=== PATIENT | male | born 1960 | race Caucasian/White ===

== ENCOUNTER → 2019-08-16 | Outpatient (CLI) | payer OTHER ==
[2019-08-16 13:13] LABS: HEMATOCRIT 46.9 % (42.0-52.0); HEMOGLOBIN 16.2 gm/dL (14.0-18.0); MCH 30.8 pg (26.0-34.0); MCHC 34.6 g/dL (28.0-37.0); MCV 89.1 fL (80.0-100.0); MPV 8.9 fl. (7.2-11.1); NUCLEATED RBCS 0 /100WBC; PLATELET COUNT* 220 thou/uL (150-400); RBC 5.26 mil/uL (4.50-6.00); RDW-CV 13.8 % (10.5-14.5); WBC 9.4 thou/uL (4.0-11.0)
[2019-08-16 13:33] LABS: ABSOLUTE LYMPHOCYTES 0.8 thou/uL (0.8-5.3); ABSOLUTE MONOCYTES 0.3 thou/uL (0.0-1.2); ABSOLUTE NEUTROPHILS 8.3 thou/uL (1.6-8.1)
[2019-08-16 14:02] LABS: ALBUMIN 3.9 g/dL (3.4-5.0); CALCIUM 8.8 mg/dL (8.5-10.1); CREATININE 1.3 mg/dL (0.6-1.3); POTASSIUM 4.5 mmol/L (3.5-5.1); TOTAL BILIRUBIN 0.7 mg/dL (<0.1-1.0)
== END ==
LOC: M.LAB 12:06
PROVIDERS: Internal Medicine
DX: J98.4 Other disorders of lung (principal); R53.83 Other fatigue; R52 Pain, unspecified; R09.89 Other specified symptoms and signs involving the circulatory and respiratory systems; J06.9 Acute upper respiratory infection, unspecified

== ENCOUNTER → 2020-05-01 | Outpatient (CLI) | payer OTHER | LOC: M.RAD 16:16 | PROVIDERS: ATTEND Internal Medicine | DX: N62 Hypertrophy of breast (principal); I10 Essential (primary) hypertension; D64.9 Anemia, unspecified; M81.0 Age-related osteoporosis without current pathological fracture; Z12.5 Encounter for screening for malignant neoplasm of prostate; Z68.38 Body mass index [BMI] 38.0-38.9, adult; Z79.899 Other long term (current) drug therapy ==